=== PATIENT | male | born 1995 | race Two or more races ===

== ENCOUNTER 2021-11-11 19:12 | Emergency (ER) | payer OTHER ==
[~2021-11-11] VITALS: Ht 177.8 cm; Wt 61.2 kg
[2021-11-11 20:01] VITALS: BP 138/72
--- NOTE | 2021-11-11 20:27 | NUR ---
Patient discharged to home in stable condition. Written and verbal after care instructions given. Patient verbalizes understanding of instruction. Pt ambulatory with a steady gait
== END 2021-11-11 20:39 | disposition home or self-care (01) ==
LOC: ER 19:16
DX: S60.552A Superficial foreign body of left hand, initial encounter (principal); W45.8XXA Other foreign body or object entering through skin, initial encounter; Y93.89 Activity, other specified; Y92.89 Other specified places as the place of occurrence of the external cause; Y99.8 Other external cause status